=== PATIENT | male | born 1935 | race Caucasian/White ===

== ENCOUNTER → 2016-10-10 | Outpatient (REF) | payer MEDICARE, OTHER ==
[~2016-10-10] MED LIST: CARV25TA PO; PRAD150C PO; PRAV40TA2 PO; QUIN5TAB7 PO; SPIR25TA2 PO; TIMO5OPD OU; TORS20TA2 PO; TYLE325T5 PO; VITMTA PO; ZYLO300T4 PO
[2016-10-10 12:10] LABS: ALBUMIN 3.5 GM/DL (3.2-5.2); ALBUMIN/GLOBULIN RATIO 1.06 (1.00-1.93); BILIRUBIN,TOTAL 0.9 MG/DL (0.2-1.0); CALCIUM LEVEL 8.7 MG/DL (8.8-10.2); CREATININE FOR GFR 1.37 MG/DL (0.70-1.30); MAGNESIUM LEVEL 2.4 MG/DL (1.8-2.4); TOTAL PROTEIN 6.8 GM/DL (6.4-8.2)
[2016-10-10 12:17] LABS: MEAN CORPUSCULAR HEMOGLOBIN 35.3 pg (27.0-33.0); MEAN CORPUSCULAR HGB CONC 33.1 g/dl (32.0-36.5); MEAN CORPUSCULAR VOLUME 106.8 fl (80.0-96.0); WHITE BLOOD COUNT 8.6 K/mm3 (4.0-10.0)
== END ==
LOC: M LABDRAWC 11:08
PROVIDERS: ATTEND Physician Assistant
DX: I50.42 Chronic combined systolic (congestive) and diastolic (congestive) heart failure (principal); E78.00 Pure hypercholesterolemia, unspecified; I48.2 Chronic atrial fibrillation

== ENCOUNTER 2016-10-14 09:31 | Emergency (ER) | payer MEDICARE, OTHER ==
[~2016-10-14] VITALS: Ht 175.3 cm; Wt 103.9 kg
[2016-10-14 09:32] VITALS: BP 136/63
[2016-10-14] MEDS ORDERED: NS 1,000 ML IV SCH (09:43)
[2016-10-14 10:41] LABS: BASO % 0.5 % (0.0-1.0); EOS % 0.5 % (0.0-3.0); LARGE UNSTAINED CELL # 0.3 K/mm3 (0.0-0.4); LARGE UNSTAINED CELL % 3.5 % (0.0-4.0); LYMPH # 1.6 K/mm3 (1.5-4.5); LYMPH % 19.6 % (24.0-44.0); MEAN CORPUSCULAR HEMOGLOBIN 34.7 pg (27.0-33.0); MEAN CORPUSCULAR HGB CONC 32.7 g/dl (32.0-36.5); MEAN CORPUSCULAR VOLUME 106.1 fl (80.0-96.0); MONO # 0.5 K/mm3 (0.0-0.8); MONO % 6.6 % (0.0-5.0); NEUTROPHILS # 5.8 K/mm3 (1.8-7.7); NEUTROPHILS % 69.4 % (36.0-66.0); PLATELET COUNT, AUTOMATED 361 k/mm3 (150-450); RED CELL DISTRIBUTION WIDTH 17.8 % (11.5-14.5); WHITE BLOOD COUNT 8.3 K/mm3 (4.0-10.0)
--- NOTE | 2016-10-14 10:44 | REP ---
CHEST, TWO VIEWS: HISTORY: Shortness of breath. COMPARISON: 11/13/2015 A diffuse increase in interstitial markings is present in the lungs, consistent with chronic interstitial fibrosis. The cardiac silhouette is enlarged. The pulmonary vasculature is prominent. The bony structure is intact. A cardiac pacemaker is present. IMPRESSION: 1. Chronic interstitial fibrosis. 2. Cardiomegaly. Signed by Hamlet Farias MD 10/14/2016 10:45 A
[2016-10-14 11:16] LABS: ALBUMIN 3.4 GM/DL (3.2-5.2); ALBUMIN/GLOBULIN RATIO 1.06 (1.00-1.93); ALKALINE PHOSPHATASE 87 U/L (45-117); ALT/SGPT 33 U/L (12-78); ANION GAP 7 MEQ/L (8-16); AST/SGOT 17 U/L (15-37); BILIRUBIN,DIRECT 0.3 MG/DL (0.0-0.2); BLOOD UREA NITROGEN 25 MG/DL (7-18); CALCIUM LEVEL 8.9 MG/DL (8.8-10.2); CARBON DIOXIDE LEVEL 29 MEQ/L (21-32); CHLORIDE LEVEL 104 MEQ/L (98-107); CREATININE FOR GFR 1.17 MG/DL (0.70-1.30); GLOMERULAR FILTRATION RATE > 60.0 (>35); GLUCOSE, FASTING 114 MG/DL (83-110); POTASSIUM SERUM 3.8 MEQ/L (3.5-5.1); SODIUM LEVEL 140 MEQ/L (136-145); TOTAL PROTEIN 6.6 GM/DL (6.4-8.2)
[2016-10-14 11:55] LABS: ADD MORPHOLOGY? YES; POIKILOCYTOSIS 1+
[2016-10-14 12:09] VITALS: O2SAT 94
--- NOTE | 2016-10-14 14:32 | ECGEPIP ---
Stationary ECG Study [facility] - ED Test Date: 2016-10-14 Pat Name: RAULITO LA Department: Room: - Gender: M [employer]uity Specialist: [id number] : [id number] Requested By: Venice Vasquez Order Number: [id number] Reading MD: Venice Vasquez Measurements Intervals [place] Rate: 60 P: NV: 0 QRS: 93 QRSD: 169 T: 65 QT: 494 QTc: 494 Interpretive Statements ELECTRONIC VENTRICULAR PACEMAKER ABNORMAL RHYTHM ECG SIMILAR 11/13/15 Electronically Signed On 10-14-2016 14:31:50 EDT by Venice Vasquez
== END 2016-10-14 14:58 | disposition home or self-care (01) ==
LOC: M ED 10:15
DX: R53.83 Other fatigue (principal); D64.9 Anemia, unspecified; R06.09 Other forms of dyspnea; I11.0 Hypertensive heart disease with heart failure; I50.9 Heart failure, unspecified; I48.91 Unspecified atrial fibrillation; Z95.0 Presence of cardiac pacemaker; Z79.899 Other long term (current) drug therapy; Z79.01 Long term (current) use of anticoagulants; Z88.5 Allergy status to narcotic agent

== ENCOUNTER → 2016-10-19 | Outpatient (REF) | payer MEDICARE, OTHER ==
[2016-10-19 11:52] LABS: MEAN CORPUSCULAR HEMOGLOBIN 33.6 pg (27.0-33.0); MEAN CORPUSCULAR HGB CONC 31.6 g/dl (32.0-36.5); MEAN CORPUSCULAR VOLUME 106.5 fl (80.0-96.0); RED CELL DISTRIBUTION WIDTH 17.5 % (11.5-14.5); WHITE BLOOD COUNT 6.3 K/mm3 (4.0-10.0)
== END ==
LOC: M SFHCCLAY 08:14
PROVIDERS: ATTEND Family Medicine
DX: D64.9 Anemia, unspecified (principal)

== ENCOUNTER → 2017-09-30 | Outpatient (CLI) | payer MEDICARE, OTHER | LOC: M RAD 11:41 | DX: Z87.440 Personal history of urinary (tract) infections (principal) | CPT/HCPCS: 76857 ==

== ENCOUNTER → 2017-10-14 | Outpatient (REF) | payer MEDICARE, OTHER ==
[2017-10-14 12:34] LABS: ALBUMIN 3.9 GM/DL (3.2-5.2); ALBUMIN/GLOBULIN RATIO 1.26 (1.00-1.93); ALKALINE PHOSPHATASE 78 U/L (45-117); ALT/SGPT 19 U/L (12-78); ANION GAP 8 MEQ/L (8-16); AST/SGOT 13 U/L (7-37); BILIRUBIN,TOTAL 1.3 MG/DL (0.2-1.0); BLOOD UREA NITROGEN 20 MG/DL (7-18); CARBON DIOXIDE LEVEL 29 MEQ/L (21-32); CHLORIDE LEVEL 105 MEQ/L (98-107); GLOMERULAR FILTRATION RATE > 60.0 (>35); GLUCOSE, FASTING 113 MG/DL (70-100); MAGNESIUM LEVEL 2.5 MG/DL (1.8-2.4); NT-PRO BNP 2765 PG/ML (<450); POTASSIUM SERUM 3.7 MEQ/L (3.5-5.1); SODIUM LEVEL 142 MEQ/L (136-145)
== END ==
LOC: M SFHCCLAY 07:03
DX: I48.2 Chronic atrial fibrillation (principal); I11.0 Hypertensive heart disease with heart failure; D46.9 Myelodysplastic syndrome, unspecified

== ENCOUNTER → 2017-10-14 | Outpatient (REF) | payer MEDICARE, OTHER ==
[2017-10-14 13:53] LABS: APPEARANCE, URINE CLEAR (CLEAR); BACTERIA, URINE AUTO NEGATIVE (NEGATIVE); BILIRUBIN, URINE AUTO NEGATIVE (NEGATIVE); BLOOD, URINE BLOOD NEGATIVE (NEGATIVE); COLOR, URINE YELLOW (YELLOW); GLUCOSE, URINE (UA) AUTO NEGATIVE (NEGATIVE); KETONE, URINE AUTO NEGATIVE (NEGATIVE); LEUKOCYTE ESTERASE, URINE AUTO 1+ (NEGATIVE); NITRITE, URINE AUTO NEGATIVE (NEGATIVE); PROTEIN, URINE AUTO NEGATIVE (NEGATIVE); RBC, URINE AUTO 1 /HPF (0-3); SQUAMOUS EPITHELIAL CELL UR AU 0 /HPF (0-6); UROBILINOGEN, URINE AUTO 0.2 mg/dL (0.0-2.0); WBC, URINE AUTO 7 /HPF (0-3)
== END ==
LOC: M SMT 13:22
DX: N40.1 Benign prostatic hyperplasia with lower urinary tract symptoms (principal); N32.89 Other specified disorders of bladder; I50.42 Chronic combined systolic (congestive) and diastolic (congestive) heart failure; I48.2 Chronic atrial fibrillation; E78.00 Pure hypercholesterolemia, unspecified
CPT/HCPCS: 83735

== ENCOUNTER → 2017-10-14 | Outpatient (REF) | payer MEDICARE, OTHER ==
[2017-10-14 12:28] LABS: ALBUMIN 3.9 GM/DL (3.2-5.2); ALBUMIN/GLOBULIN RATIO 1.22 (1.00-1.93); ALKALINE PHOSPHATASE 81 U/L (45-117); ALT/SGPT 18 U/L (12-78); ANION GAP 7 MEQ/L (8-16); AST/SGOT 11 U/L (7-37); BILIRUBIN,TOTAL 1.3 MG/DL (0.2-1.0); BLOOD UREA NITROGEN 21 MG/DL (7-18); CALCIUM LEVEL 9.1 MG/DL (8.8-10.2); CARBON DIOXIDE LEVEL 28 MEQ/L (21-32); CHLORIDE LEVEL 107 MEQ/L (98-107); CHOLESTEROL LEVEL 87 MG/DL (<200); CHOLESTEROL RISK RATIO 1.851 (<5); CREATININE FOR GFR 1.19 MG/DL (0.70-1.30); GLOMERULAR FILTRATION RATE > 60.0 (>35); GLUCOSE, FASTING 113 MG/DL (70-100); HDL CHOLESTEROL 47 MG/DL (>40); LDL CHOLESTEROL 32.8 MG/DL (<100); MAGNESIUM LEVEL 2.4 MG/DL (1.8-2.4); NON-HDL-C 40 MG/DL; POTASSIUM SERUM 3.9 MEQ/L (3.5-5.1); SODIUM LEVEL 142 MEQ/L (136-145); TOTAL PROTEIN 7.1 GM/DL (6.4-8.2); TRIGLYCERIDES LEVEL 36 MG/DL (<150)
== END ==
LOC: M LABDRAWC 11:26
DX: I50.42 Chronic combined systolic (congestive) and diastolic (congestive) heart failure (principal); I48.2 Chronic atrial fibrillation; E78.00 Pure hypercholesterolemia, unspecified
CPT/HCPCS: 83735

== ENCOUNTER → 2018-04-15 | Outpatient (REF) | payer MEDICARE, OTHER ==
[2018-04-15 12:53] LABS: ANION GAP 7 MEQ/L (8-16); BLOOD UREA NITROGEN 26 MG/DL (7-18); CALCIUM LEVEL 9.1 MG/DL (8.8-10.2); CARBON DIOXIDE LEVEL 31 MEQ/L (21-32); CHLORIDE LEVEL 104 MEQ/L (98-107); CREATININE FOR GFR 1.31 MG/DL (0.70-1.30); GLOMERULAR FILTRATION RATE 55.5 (>35); GLUCOSE, FASTING 161 MG/DL (70-100); POTASSIUM SERUM 3.5 MEQ/L (3.5-5.1); SODIUM LEVEL 142 MEQ/L (136-145)
== END ==
LOC: M LABDRAWC 11:35
DX: I50.32 Chronic diastolic (congestive) heart failure (principal)
CPT/HCPCS: 80048

== ENCOUNTER → 2018-10-14 | Outpatient (REF) | payer MEDICARE, OTHER ==
[~2018-10-14] MED LIST changes: -PRAD150C PO; +PRAD150C6 PO; +QUIN1TAB PO; -QUIN5TAB7 PO; +SPIR-10 PO; -SPIR25TA2 PO; -ZYLO300T4 PO; +ZYLO300T6 PO
[2018-10-14 12:50] LABS: ALT/SGPT 21 U/L (12-78); BILIRUBIN,TOTAL 0.7 MG/DL (0.2-1.0); BLOOD UREA NITROGEN 24 MG/DL (7-18); CALCIUM LEVEL 9.2 MG/DL (8.8-10.2); CARBON DIOXIDE LEVEL 28 MEQ/L (21-32); CHLORIDE LEVEL 107 MEQ/L (98-107); CHOLESTEROL LEVEL 106 MG/DL (<200); CHOLESTEROL RISK RATIO 2.163 (<5); CREATININE FOR GFR 1.06 MG/DL (0.70-1.30); GLOMERULAR FILTRATION RATE > 60.0 (>35); GLUCOSE, FASTING 107 MG/DL (70-100); HDL CHOLESTEROL 49 MG/DL (>40); LDL CHOLESTEROL 48 MG/DL (<100); MAGNESIUM LEVEL 2.5 MG/DL (1.8-2.4); NON-HDL-C 57 MG/DL; POTASSIUM SERUM 4.1 MEQ/L (3.5-5.1); SODIUM LEVEL 143 MEQ/L (136-145); TOTAL PROTEIN 7.3 GM/DL (6.4-8.2); TRIGLYCERIDES LEVEL 47 MG/DL (<150)
== END ==
LOC: M LABDRAWC 11:10
PROVIDERS: ATTEND Physician Assistant
DX: I50.42 Chronic combined systolic (congestive) and diastolic (congestive) heart failure (principal); I48.2 Chronic atrial fibrillation; E78.00 Pure hypercholesterolemia, unspecified

== ENCOUNTER → 2019-04-01 | Outpatient (REF) | payer MEDICARE, OTHER ==
[2019-04-01 11:43] LABS: ALBUMIN 4.1 GM/DL (3.2-5.2); ALT/SGPT 24 U/L (12-78); BILIRUBIN,TOTAL 1.4 MG/DL (0.2-1.0); BLOOD UREA NITROGEN 26 MG/DL (7-18); CALCIUM LEVEL 9.9 MG/DL (8.8-10.2); CARBON DIOXIDE LEVEL 28 MEQ/L (21-32); CHLORIDE LEVEL 108 MEQ/L (98-107); CREATININE FOR GFR 1.15 MG/DL (0.70-1.30); FREE T4 0.85 NG/DL (0.76-1.46); GLOMERULAR FILTRATION RATE > 60.0 (>35); GLUCOSE, FASTING 106 MG/DL (70-100); IRON (FE) 138 UG/DL (65-175); PERCENT SATURATION 56.6 % (19.7-50.0); POTASSIUM SERUM 4.5 MEQ/L (3.5-5.1); SODIUM LEVEL 142 MEQ/L (136-145); TOTAL IRON BINDING CAPACITY 244 UG/DL (250-450); TOTAL PROTEIN 7.6 GM/DL (6.4-8.2)
[2019-04-01 11:46] LABS: FOLATE 17.1 NG/ML; VITAMIN B12 LEVEL 1231 PG/ML
== END ==
LOC: M SFHCCLAY 08:01
PROVIDERS: ATTEND Family Medicine
DX: I48.20 Chronic atrial fibrillation, unspecified (principal); D46.9 Myelodysplastic syndrome, unspecified; D64.9 Anemia, unspecified

== ENCOUNTER → 2019-10-21 | Outpatient (REF) | payer MEDICARE, OTHER ==
[2019-10-21 12:38] LABS: ALBUMIN 4.2 GM/DL (3.2-5.2); ALT/SGPT 20 U/L (12-78); BILIRUBIN,TOTAL 1.7 MG/DL (0.2-1.0); BLOOD UREA NITROGEN 19 MG/DL (7-18); CALCIUM LEVEL 10.2 MG/DL (8.8-10.2); CARBON DIOXIDE LEVEL 28 MEQ/L (21-32); CHLORIDE LEVEL 105 MEQ/L (98-107); CHOLESTEROL LEVEL 83 MG/DL (<200); CHOLESTEROL RISK RATIO 1.693 (<5); CREATININE FOR GFR 1.09 MG/DL (0.70-1.30); GLOMERULAR FILTRATION RATE > 60.0 (>35); GLUCOSE, FASTING 102 MG/DL (70-100); HDL CHOLESTEROL 49 MG/DL (>40); LDL CHOLESTEROL 27 MG/DL (<100); MAGNESIUM LEVEL 2.4 MG/DL (1.8-2.4); NON-HDL-C 34 MG/DL; POTASSIUM SERUM 4.4 MEQ/L (3.5-5.1); SODIUM LEVEL 137 MEQ/L (136-145); TOTAL PROTEIN 7.1 GM/DL (6.4-8.2); TRIGLYCERIDES LEVEL 33 MG/DL (<150)
== END ==
LOC: M SFHCCLAY 08:04
PROVIDERS: ATTEND Family Medicine
DX: I10 Essential (primary) hypertension (principal)

== ENCOUNTER → 2020-01-20 | Outpatient (CLI) | payer MEDICARE, OTHER ==
--- NOTE | 2020-02-04 10:42 | REP ---
CERVICAL SPINE SERIES: HISTORY: Left radicular symptoms. FINDINGS: 7-views of the cervical spine are performed. There is no compression fracture. There is mild anterior listhesis of C4 on C5 and C5 on C6 apparently due to posterior facet arthropathy. This does not change with flexion comparing to the neutral position. It does appear to essentially reduce with extension. The inferior aspect of C7 is not visualized. Its relation to the T1 vertebral body cannot be ascertained. There is mild spurring of C4 and C5 with a more moderate degree of spurring of C6 and C7. There is mild disc space narrowing at C5-6 and C6-7. There is diffuse narrowing, sclerosis and spurring at the posterior facet joints. There is no gross radiographic evidence of significant neuroforaminal narrowing bilaterally. IMPRESSION: Degenerative changes as above. Diffuse facet arthritic change. Mild degenerative disc disease at C5-6 and C6-7. Mild anterior listhesis of C4 on C5 and C5 on C6 noted in the neutral and flexed positions, essentially reduces in extension. MTDD
== END ==
LOC: M CLY 12:31
PROVIDERS: ATTEND Family Medicine
DX: M50.322 Other cervical disc degeneration at C5-C6 level (principal); M50.323 Other cervical disc degeneration at C6-C7 level; M25.78 Osteophyte, vertebrae; M54.12 Radiculopathy, cervical region
CPT/HCPCS: 72050; G0463

== ENCOUNTER 2020-07-22 13:44 | Emergency (ER) | payer MEDICARE, OTHER ==
[~2020-07-22] VITALS: Ht 172.7 cm; Wt 94.5 kg
[2020-07-22] MEDS ORDERED: ELIQ5TAB (14:02)
[2020-07-22] MEDS ORDERED: LIDOCAINE 1% MDV 20ML VIAL SC ONE (16:40)
[2020-07-22] MEDS ORDERED: LIDOCAINE 1% MDV 20ML VIAL As Ordered ONE (16:41)
[2020-07-22] MEDS ORDERED: NEOSPORIN OINT 0.9 GM PKT TOP ONE (17:25)
[2020-07-22] MEDS ORDERED: SILVER NITRATE APPLICATOR TOP ONE (17:40)
[2020-07-22] MEDS ORDERED: BACTRIM 160MG/800MG DS TAB PO ONE (17:45)
[2020-07-22] MEDS ORDERED: TAMSULOSIN 0.4 MG CAP PO ONE (17:45)
[2020-07-22] MEDS ORDERED: ACETAMINOPHEN 500 MG TAB PO ONE (18:00)
[2020-07-22 18:01] VITALS: BP 175/75
[2020-07-22] MEDS ORDERED: CEPH500C PO (18:01)
[2020-07-22] MEDS ORDERED: FLOM0.4C39 PO (18:01)
[2020-07-22] MEDS ORDERED: CEPHALEXIN 500 MG CAP PO ONE (18:05)
== END 2020-07-22 18:38 | disposition home or self-care (01) ==
LOC: M ED 13:44
DX: R33.9 Retention of urine, unspecified (principal); N39.0 Urinary tract infection, site not specified; N47.1 Phimosis; I50.9 Heart failure, unspecified; Z95.0 Presence of cardiac pacemaker; I10 Essential (primary) hypertension; D64.9 Anemia, unspecified; Z79.01 Long term (current) use of anticoagulants; Z79.899 Other long term (current) drug therapy; Z88.5 Allergy status to narcotic agent

== ENCOUNTER → 2021-06-13 | Outpatient (REF) | payer MEDICARE, OTHER ==
[~2021-06-13] MED LIST changes: +CEPH500C PO; +ELIQ5TAB; +FLOM0.4C39 PO
== END ==
LOC: M LAB REF 12:56
PROVIDERS: ATTEND Physician Assistant
DX: M25.462 Effusion, left knee (principal)

== ENCOUNTER → 2021-08-17 | Outpatient (REF) | payer MEDICARE, OTHER | LOC: M SFHCCLAY 07:05 | PROVIDERS: ATTEND Family Medicine | DX: M25.571 Pain in right ankle and joints of right foot (principal); M79.671 Pain in right foot ==

== ENCOUNTER → 2022-09-17 | Outpatient (REF) | payer MEDICARE, OTHER | LOC: M LABDRAWC 16:49 | PROVIDERS: ATTEND Family Medicine | DX: R35.0 Frequency of micturition (principal) ==

== ENCOUNTER → 2023-02-22 | Outpatient (REF) | payer MEDICARE, OTHER | LOC: M SFHCCLAY 13:40 | PROVIDERS: ATTEND Family Medicine | DX: M10.9 Gout, unspecified (principal) ==

== ENCOUNTER 2024-01-19 13:10 | Inpatient (IN) | payer MEDICARE, OTHER ==
[~2024-01-19] VITALS: Ht 175.3 cm; Wt 82.4 kg
[2024-01-19] MEDS ORDERED: ALLO300T2 PO (13:30)
[2024-01-19] MEDS ORDERED: LEVO1TAB39 PO (13:30)
[2024-01-19] MEDS ORDERED: ACET325C5 PO (13:30)
[2024-01-19] MEDS ORDERED: AMIL5TAB4 PO (13:30)
[2024-01-19] MEDS ORDERED: ELIQ2.5T PO (13:30)
[2024-01-19 14:17] LABS: HEMATOCRIT 27.9 % (42.0-52.0); HEMOGLOBIN 9.1 g/dl (13.5-17.5); MEAN CORPUSCULAR HEMOGLOBIN 31.8 pg (27.0-33.0); MEAN CORPUSCULAR HGB CONC 32.6 g/dl (32.0-36.5); MEAN CORPUSCULAR VOLUME 97.6 fl (80.0-96.0); PLATELET COUNT, AUTOMATED 185 10^3/uL (150-450); RED BLOOD COUNT 2.86 10^6/uL (4.30-6.10); WHITE BLOOD COUNT 14.8 10^3/uL (4.0-10.0)
[2024-01-19 14:30] LABS: INR 1.73; PARTIAL THROMBOPLASTIN TIME 39.6 SECONDS (24.8-34.2); PROTHROMBIN TIME 19.7 SECONDS (12.5-14.5)
[2024-01-19] MEDS: NS 500 ML IV ONE (14:30)
[2024-01-19 14:36] LABS: ATYPICAL LYMPH 1 % (0-5); LYMPHOCYTES 9 % (16-44); MONOCYTES 7 % (0-5); NEUTROPHILS 78 % (28-66); PLATELET ESTIMATE NORMAL (NORMAL)
[2024-01-19 14:38] LABS: ANISOCYTOSIS 2+; CK-MB VALUE MASS < 1.0 NG/ML (<3.6); HYPOCHROMASIA 2+
[2024-01-19 14:40] LABS: BLOOD UREA NITROGEN 36 MG/DL (9-23); CARBON DIOXIDE LEVEL 26 MMOL/L (20-31); CHLORIDE LEVEL 104 MMOL/L (98-107); CPK CREATINE PHOSPHOKINASE 28 U/L (46-171); GLOMERULAR FILTRATION RATE > 60.0 (>35); GLUCOSE, FASTING 104 MG/DL (74-106); MB/CK RELATIVE INDEX 3.57 (< OR =4); SODIUM LEVEL 135 MMOL/L (136-145); TARGET CELLS 1+; TEAR DROP CELLS 1+
[2024-01-19 14:41] LABS: ALBUMIN 3.7 G/DL (3.2-5.2); ALKALINE PHOSPHATASE 70 U/L (46-116); ALT/SGPT 10 U/L (7.0-40); AST/SGOT 10 U/L (<34); BILIRUBIN,DIRECT 1.3 MG/DL (<0.4); BILIRUBIN,TOTAL 2.7 MG/DL (0.3-1.2); TOTAL PROTEIN 6.8 G/DL (5.7-8.2)
[2024-01-19 14:43] LABS: FREE T4 1.03 NG/DL (0.89-1.76); THYROID STIMULATING HORMONE 2.506 uIU/ML (0.55-4.78)
[2024-01-19] MEDS: cefTRIAXone SOD 1 GM in D5W MINI-BAG PLUS 50 ML IV ONE ×2 (15:27→16:58)
[2024-01-19 15:42] LABS: CK-MB VALUE MASS < 1.0 NG/ML (<3.6)
[2024-01-19 15:43] LABS: CPK CREATINE PHOSPHOKINASE 22 U/L (46-171); MB/CK RELATIVE INDEX 4.54 (< OR =4)
[2024-01-19] MEDS ORDERED: traMADol 50 MG TAB PO PRN (16:25)
[2024-01-19] MEDS ORDERED: SENOKOT S TAB PO PRN (16:30)
[2024-01-19] MEDS ORDERED: MIRALAX *UNIT DOSE* 17GM PACKET PO PRN (16:30)
[2024-01-19] MEDS ORDERED: ONDANSETRON 4MG 2ML VIAL IV PRN (16:30)
[2024-01-19] MEDS: NS 1,000 ML IV ONE (16:57)
[2024-01-19] MEDS ORDERED: TIMO0.5S20 OU (17:34)
[2024-01-19] MEDS ORDERED: ACET-683 PO (17:34)
[2024-01-19] MEDS ORDERED: HOME MED LIST COMPLETE! XX SCH (17:40)
[2024-01-19] MEDS: allopurinoL 300 MG TAB PO SCH (18:32)
[2024-01-19] MEDS: ACETAMINOPHEN 500 MG TAB PO SCH (18:33)
[2024-01-19] MEDS: LACTOBACILLUS ACIDOPHILUS CAP (BACID) PO SCH (18:33)
[2024-01-19] MEDS: PRAVASTATIN 20 MG TAB PO SCH (18:34)
[2024-01-19] MEDS: TIMOLOL MALEATE 0.5% OPHTH SOLN 5 ML OU SCH (21:00)
[2024-01-19] MEDS: CARVedilol 12.5 MG TAB PO SCH (21:00)
[2024-01-19 21:34] VITALS: BP 118/56; TEMP 97.4; O2SAT 96
[2024-01-19] MEDS: APIXABAN 2.5 MG TAB (ELIQUIS) PO SCH (21:48)
[2024-01-19 23:39] VITALS: BP 116/56; TEMP 97.8; O2SAT 94
[2024-01-20] VITALS (7 sets, daily range): BP systolic 128–137; BP diastolic 56–68; TEMP 97.1–97.9; O2SAT 93–96
[2024-01-20 06:11] LABS: BASO % 0.1 % (0.0-1.0); EOS % 0.1 % (0.0-3.0); HEMOGLOBIN 8.2 g/dl (13.5-17.5); LYMPH # 1.4 10^3/uL (1.5-5.0); LYMPH % 10.3 % (24.0-44.0); MEAN CORPUSCULAR HEMOGLOBIN 31.2 pg (27.0-33.0); MEAN CORPUSCULAR HGB CONC 31.5 g/dl (32.0-36.5); MEAN CORPUSCULAR VOLUME 98.9 fl (80.0-96.0); MONO % 14.8 % (2.0-8.0); NEUTROPHILS # 10.2 10^3/uL (1.5-8.5); NEUTROPHILS % 73.7 % (36.0-66.0); PLATELET COUNT, AUTOMATED 184 10^3/uL (150-450); RED BLOOD COUNT 2.63 10^6/uL (4.30-6.10); WHITE BLOOD COUNT 13.8 10^3/uL (4.0-10.0)
[2024-01-20 06:34] LABS: BLOOD UREA NITROGEN 33 MG/DL (9-23); CALCIUM LEVEL 8.9 MG/DL (8.3-10.6); CARBON DIOXIDE LEVEL 24 MMOL/L (20-31); CHLORIDE LEVEL 107 MMOL/L (98-107); CREATININE FOR GFR 0.97 MG/DL (0.70-1.30); GLOMERULAR FILTRATION RATE > 60.0 (>35); GLUCOSE, FASTING 95 MG/DL (74-106); POTASSIUM SERUM 3.9 MMOL/L (3.5-5.1); SODIUM LEVEL 138 MMOL/L (136-145)
[2024-01-20] MEDS: TORSEMIDE 20 MG TAB PO SCH (09:00)
[2024-01-20] MEDS: SPIRONOLACTONE 12.5MG PER 1/2 TABLET PO SCH (09:26)
[2024-01-20] MEDS: CETIRIZINE (ZyrTEC) 10 MG TAB PO ONE (09:27)
[2024-01-20] MEDS: BISACODYL 5MG TAB PO PRN (10:15)
[2024-01-20] MEDS ORDERED: ACETAMINOPHEN 500 MG TAB PO ONE (10:15)
[2024-01-20] MEDS: aMILoride 5 MG TAB PO SCH (11:21)
[2024-01-20] MEDS: FLUTICASONE PROP 0.05% NASAL SPRAY 16 GM (FLONASE) NARES ONE (11:23)
[2024-01-20] MEDS: OXYMETAZOLINE 0.05% NASAL SPRAY (AFRIN) ONE (11:24)
[2024-01-20] MEDS: cefTRIAXone SOD 1 GM in D5W MINI-BAG PLUS 50 ML IV SCH (11:31)
[2024-01-20] MEDS ORDERED: ACET-683 PO (14:37)
[2024-01-20] MEDS ORDERED: CEFTINJ IV (14:37)
[2024-01-20] MEDS ORDERED: OXYMETAZOLINE 0.05% NASAL SPRAY (AFRIN) SCH (21:00)
[2024-01-21] MEDS ORDERED: FLUTICASONE PROP 0.05% NASAL SPRAY 16 GM (FLONASE) NARES SCH (09:00)
== END 2024-01-20 15:53 | DRG 698 ==
LOC: M ED 13:10 → EDBD 13:10 → M ED INP 16:13 → M PCU 21:34
PROVIDERS: ADMIT General Practice; ATTEND General Practice
DX: T83.511A Infection and inflammatory reaction due to indwelling urethral catheter, initial encounter (principal); A41.9 Sepsis, unspecified organism; Y84.6 Urinary catheterization as the cause of abnormal reaction of the patient, or of later complication, without mention of misadventure at the time of the procedure; I48.91 Unspecified atrial fibrillation; D46.9 Myelodysplastic syndrome, unspecified; I10 Essential (primary) hypertension; N40.1 Benign prostatic hyperplasia with lower urinary tract symptoms; N39.0 Urinary tract infection, site not specified; R33.9 Retention of urine, unspecified; M81.0 Age-related osteoporosis without current pathological fracture; Z66 Do not resuscitate; S92.532A Displaced fracture of distal phalanx of left lesser toe(s), initial encounter for closed fracture; W18.30XA Fall on same level, unspecified, initial encounter; Y92.481 Parking lot as the place of occurrence of the external cause; Y93.89 Activity, other specified; Y99.8 Other external cause status; Z79.01 Long term (current) use of anticoagulants; Z79.899 Other long term (current) drug therapy; Z88.5 Allergy status to narcotic agent; Z87.891 Personal history of nicotine dependence

== ENCOUNTER 2024-01-20 14:08 | Inpatient (IN) | payer MEDICARE, OTHER ==
[~2024-01-20] VITALS: Ht 175.3 cm; Wt 83.1 kg
[~2024-01-20 14:08] MED LIST changes: +ACET-683 PO; +ACET325C5 PO; +ALLO300T2 PO; +AMIL5TAB4 PO; +ELIQ2.5T PO; +LEVO1TAB39 PO; +TIMO0.5S20 OU
[2024-01-20] MEDS ORDERED: CEFTINJ IV (14:37)
[2024-01-20] MEDS ORDERED: ACET-683 PO (14:37)
[2024-01-20 15:56] VITALS: BP 145/61; TEMP 97.4; O2SAT 96
[2024-01-20] MEDS ORDERED: BISACODYL 10MG SUPP PR PRN (16:25)
[2024-01-20] MEDS ORDERED: MIRALAX *UNIT DOSE* 17GM PACKET PO PRN (16:25)
[2024-01-20] MEDS ORDERED: ONDANSETRON 4MG TAB PO PRN (16:25)
[2024-01-20] MEDS ORDERED: MOM 30ML SUSPENSION UDC PO PRN (16:25)
[2024-01-20] MEDS ORDERED: FLEET ENEMA PR PRN (16:25)
[2024-01-20] MEDS ORDERED: OXYMETAZOLINE 0.05% NASAL SPRAY (AFRIN) PRN (16:35)
[2024-01-20] MEDS ORDERED: traMADol 50 MG TAB PO PRN (16:35)
[2024-01-20] MEDS: LACTOBACILLUS ACIDOPHILUS CAP (BACID) PO SCH (17:56)
[2024-01-20] MEDS: ACETAMINOPHEN 500 MG TAB PO SCH (17:57)
[2024-01-20 20:00] VITALS: BP 128/61; TEMP 97.7; O2SAT 93
[2024-01-20] MEDS: CARVedilol 12.5 MG TAB PO SCH (20:20)
[2024-01-20] MEDS: SENNA 8.6 MG TAB (SENOKOT) PO SCH (20:21)
[2024-01-20] MEDS: APIXABAN 2.5 MG TAB (ELIQUIS) PO SCH (20:21)
[2024-01-20] MEDS: TIMOLOL MALEATE 0.5% OPHTH SOLN 5 ML OU SCH (20:23)
[2024-01-20 23:29] VITALS: BP 138/65; TEMP 97.7; O2SAT 93
[2024-01-21 00:21] VITALS: BP 138/65; TEMP 97.7; O2SAT 93
[2024-01-21 04:00] VITALS: BP 140/65; TEMP 97.7; O2SAT 95
[2024-01-21 06:23] LABS: BASO % 0.1 % (0.0-1.0); EOS % 0.3 % (0.0-3.0); HEMATOCRIT 25.6 % (42.0-52.0); HEMOGLOBIN 8.3 g/dl (13.5-17.5); LYMPH % 20.4 % (24.0-44.0); MEAN CORPUSCULAR HEMOGLOBIN 31.7 pg (27.0-33.0); MEAN CORPUSCULAR HGB CONC 32.4 g/dl (32.0-36.5); MEAN CORPUSCULAR VOLUME 97.7 fl (80.0-96.0); MONO # 1.5 10^3/uL (0.0-0.8); NEUTROPHILS # 6.1 10^3/uL (1.5-8.5); NEUTROPHILS % 63.1 % (36.0-66.0); PLATELET COUNT, AUTOMATED 190 10^3/uL (150-450); RED BLOOD COUNT 2.62 10^6/uL (4.30-6.10); WHITE BLOOD COUNT 9.7 10^3/uL (4.0-10.0)
[2024-01-21 06:47] LABS: BLOOD UREA NITROGEN 33 MG/DL (9-23); CALCIUM LEVEL 8.9 MG/DL (8.3-10.6); CARBON DIOXIDE LEVEL 25 MMOL/L (20-31); CHLORIDE LEVEL 108 MMOL/L (98-107); CREATININE FOR GFR 0.92 MG/DL (0.70-1.30); GLOMERULAR FILTRATION RATE > 60.0 (>35); GLUCOSE, FASTING 97 MG/DL (74-106); POTASSIUM SERUM 3.8 MMOL/L (3.5-5.1); SODIUM LEVEL 138 MMOL/L (136-145)
[2024-01-21 06:53] VITALS: BP 140/65; TEMP 97.7; O2SAT 95
[2024-01-21] MEDS: allopurinoL 300 MG TAB PO SCH (08:19)
[2024-01-21] MEDS: TORSEMIDE 20 MG TAB PO SCH (08:20)
[2024-01-21] MEDS: PRAVASTATIN 20 MG TAB PO SCH (08:20)
[2024-01-21] MEDS: CETIRIZINE (ZyrTEC) 10 MG TAB PO SCH (08:22)
[2024-01-21] MEDS: SPIRONOLACTONE 12.5MG PER 1/2 TABLET PO SCH (08:22)
[2024-01-21] MEDS: aMILoride 5 MG TAB PO SCH (10:22)
[2024-01-21] MEDS: FLUTICASONE PROP 0.05% NASAL SPRAY 16 GM (FLONASE) NARES SCH (10:22)
[2024-01-21 12:00] VITALS: BP 142/65; TEMP 97.4; O2SAT 94
[2024-01-21] MEDS: cefTRIAXone SOD 1 GM in D5W MINI-BAG PLUS 50 ML IV SCH (12:14)
[2024-01-21] MEDS: traMADol 50 MG TAB PO PRN (12:25)
[2024-01-21 18:56] LABS: PERCENT SATURATION 6.2 % (19.7-50.0)
[2024-01-21 18:58] LABS: FERRITIN 1154.2 NG/ML (10.5-307.3)
[2024-01-21 19:01] LABS: FOLATE 17.16 NG/ML (>5.4)
[2024-01-21 20:00] VITALS: BP 142/69; TEMP 97.8; O2SAT 98
[2024-01-21 22:00] VITALS: BP 142/69; TEMP 97.8
[2024-01-22 04:00] VITALS: BP 143/65; TEMP 97.8; O2SAT 97
[2024-01-22] MEDS: LACTOBACILLUS ACIDOPHILUS CAP (BACID) PO SCH (08:22)
[2024-01-22 10:35] LABS: BASO % 0.2 % (0.0-1.0); EOS % 0.3 % (0.0-3.0); HEMATOCRIT 26.3 % (42.0-52.0); HEMOGLOBIN 8.5 g/dl (13.5-17.5); LYMPH % 30.4 % (24.0-44.0); MEAN CORPUSCULAR HEMOGLOBIN 31.4 pg (27.0-33.0); MEAN CORPUSCULAR HGB CONC 32.3 g/dl (32.0-36.5); MONO # 0.7 10^3/uL (0.0-0.8); NEUTROPHILS # 3.8 10^3/uL (1.5-8.5); NEUTROPHILS % 57.7 % (36.0-66.0); PLATELET COUNT, AUTOMATED 244 10^3/uL (150-450); RED BLOOD COUNT 2.71 10^6/uL (4.30-6.10); WHITE BLOOD COUNT 6.6 10^3/uL (4.0-10.0)
[2024-01-22 11:10] LABS: BLOOD UREA NITROGEN 36 MG/DL (9-23); CALCIUM LEVEL 8.7 MG/DL (8.3-10.6); CARBON DIOXIDE LEVEL 23 MMOL/L (20-31); CHLORIDE LEVEL 105 MMOL/L (98-107); GLOMERULAR FILTRATION RATE > 60.0 (>35); GLUCOSE, FASTING 146 MG/DL (74-106); POTASSIUM SERUM 4.1 MMOL/L (3.5-5.1); SODIUM LEVEL 134 MMOL/L (136-145)
[2024-01-22 12:00] VITALS: BP 160/69; TEMP 97; O2SAT 98
[2024-01-22] MEDS: [UNRECOGNIZED DRUG - REMARK] SC ONE (13:35)
[2024-01-22] MEDS ORDERED: **hydrALAZINE HCL** 25 MG TAB PO PRN (14:20)
[2024-01-22 14:42] VITALS: BP 142/64
[2024-01-22] MEDS: cefTRIAXone SOD 1 GM in D5W MINI-BAG PLUS 50 ML IV SCH (16:43)
[2024-01-22 20:00] VITALS: BP 130/66; TEMP 97.4; O2SAT 98
[2024-01-22 20:05] VITALS: BP 130/66; TEMP 97.4; O2SAT 97
[2024-01-23 04:17] VITALS: BP 121/58; TEMP 98.5; O2SAT 98
[2024-01-23] MEDS ORDERED: ACETAMINOPHEN TAB 650MG DOSE (2X325MG) PO PRN (08:45)
[2024-01-23 12:00] VITALS: BP 129/63; TEMP 97.3; O2SAT 96
[2024-01-23] MEDS ORDERED: MICONAZOLE TOPICAL 2% CREAM 15GM TOP ONE (13:50)
[2024-01-23] MEDS: MICONAZOLE TOPICAL 2% CREAM 15GM TOP SCH (16:26)
[2024-01-23 20:00] VITALS: BP 150/68; TEMP 97.9; O2SAT 100
[2024-01-23] MEDS: AMOXICILLIN 500 MG CAP PO SCH (20:04)
[2024-01-24 03:06] VITALS: BP 127/59; TEMP 97.8; O2SAT 100
[2024-01-24 06:52] LABS: BASO % 0.1 % (0.0-1.0); EOS % 0.3 % (0.0-3.0); HEMATOCRIT 25.2 % (42.0-52.0); HEMOGLOBIN 8.2 g/dl (13.5-17.5); LYMPH # 2.7 10^3/uL (1.5-5.0); LYMPH % 38.8 % (24.0-44.0); MEAN CORPUSCULAR HEMOGLOBIN 31.8 pg (27.0-33.0); MEAN CORPUSCULAR HGB CONC 32.5 g/dl (32.0-36.5); MEAN CORPUSCULAR VOLUME 97.7 fl (80.0-96.0); MONO # 0.7 10^3/uL (0.0-0.8); MONO % 10.5 % (2.0-8.0); NEUTROPHILS # 3.2 10^3/uL (1.5-8.5); NEUTROPHILS % 46.5 % (36.0-66.0); PLATELET COUNT, AUTOMATED 249 10^3/uL (150-450); RED BLOOD COUNT 2.58 10^6/uL (4.30-6.10); WHITE BLOOD COUNT 6.9 10^3/uL (4.0-10.0)
[2024-01-24 12:05] VITALS: BP 129/59; TEMP 97; O2SAT 100
[2024-01-24] MEDS ORDERED: LOPERAMIDE 2 MG CAPLET PO PRN (14:50)
[2024-01-24] MEDS: LOPERAMIDE 2 MG CAPLET PO ONE (15:58)
[2024-01-24 20:00] VITALS: BP 142/75; TEMP 97.3; O2SAT 96
[2024-01-24] MEDS: METHENAMINE HIPPURATE 1GM TABLET PO SCH (20:44)
[2024-01-25 04:00] VITALS: BP 144/67; TEMP 97.2; O2SAT 93
[2024-01-25 12:00] VITALS: BP 130/68; TEMP 97.6; O2SAT 98
[2024-01-25 20:00] VITALS: BP 156/66; TEMP 98; O2SAT 97
[2024-01-26 04:00] VITALS: BP 141/65; TEMP 97.9; O2SAT 93
[2024-01-26 12:00] VITALS: BP 128/70; TEMP 98; O2SAT 92
[2024-01-26 19:40] VITALS: BP 130/72; TEMP 97.2; O2SAT 98
[2024-01-27] MEDS ORDERED: PERMETHRIN 5% CREAM 60 GM TOP SCH
[2024-01-27 04:09] VITALS: BP 118/57; TEMP 97.4; O2SAT 95
[2024-01-27] MEDS: BISACODYL 5MG TAB PO PRN (08:45)
[2024-01-27] MEDS: TUBERCULIN PPD 5 UNITS/0.1 ML ID ONE ×2 (10:02→21:12)
[2024-01-27 12:00] VITALS: BP 120/58; TEMP 97.7; O2SAT 98
[2024-01-27 20:03] VITALS: BP 143/67; TEMP 97.9; O2SAT 95
[2024-01-27] MEDS: PERMETHRIN 5% CREAM 60 GM TOP ONE (21:12)
[2024-01-28 04:00] VITALS: BP 130/59; TEMP 97.9; O2SAT 95
[2024-01-28 12:00] VITALS: BP 146/66; TEMP 97.1; O2SAT 97
[2024-01-28] MEDS ORDERED: ACET1TAB55 PO (14:46)
[2024-01-28] MEDS ORDERED: TRAM50TA2 PO (14:46)
[2024-01-28] MEDS ORDERED: MICO2CRE22 TOP (14:46)
[2024-01-28] MEDS ORDERED: BISAC5TA PO (14:46)
[2024-01-28] MEDS ORDERED: METH-855 PO (14:46)
[2024-01-28] MEDS ORDERED: ELIQ2.5T PO (14:46)
[2024-01-28] MEDS: PPD DOCUMENTATION ENTRY MISC XX ONE (18:30)
[2024-01-28 20:00] VITALS: BP 142/63; TEMP 97.8; O2SAT 96
[2024-01-29 04:00] VITALS: BP 128/60; TEMP 98.2; O2SAT 96
[2024-01-29] MEDS ORDERED: AMIL5TAB4 PO (09:03)
[2024-01-29] MEDS ORDERED: SPIR-10 PO (09:03)
[2024-01-29] MEDS ORDERED: PRAV40TA2 PO (09:03)
[2024-01-29] MEDS ORDERED: TIMO0.5S20 OU (09:03)
[2024-01-29] MEDS ORDERED: CARV25TA PO (09:03)
[2024-01-29] MEDS ORDERED: ALLO300T2 PO (09:03)
[2024-01-29] MEDS ORDERED: TORS20TA2 PO (09:03)
[2024-01-29] MEDS ORDERED: PPD DOCUMENTATION ENTRY MISC XX SCH (10:00)
[2024-01-29 12:00] VITALS: BP 118/62; TEMP 98; O2SAT 94
[2024-01-29 20:00] VITALS: BP 143/61; TEMP 97.4; O2SAT 96
[2024-01-30 04:00] VITALS: BP 110/55; TEMP 97.2; O2SAT 95
[2024-01-30 08:16] VITALS: BP 136/81
== END 2024-01-30 12:15 | disposition home or self-care (01) | DRG 560 ==
LOC: M PM&R 15:55
PROVIDERS: ADMIT Physical Medicine & Rehabilitation; ATTEND Physical Medicine & Rehabilitation
DX: S92.532D Displaced fracture of distal phalanx of left lesser toe(s), subsequent encounter for fracture with routine healing (principal); N39.0 Urinary tract infection, site not specified; Z66 Do not resuscitate; I10 Essential (primary) hypertension; I48.91 Unspecified atrial fibrillation; R06.02 Shortness of breath; D46.9 Myelodysplastic syndrome, unspecified; N40.1 Benign prostatic hyperplasia with lower urinary tract symptoms; Z74.1 Need for assistance with personal care; Z74.09 Other reduced mobility; R26.89 Other abnormalities of gait and mobility; M10.9 Gout, unspecified; Z95.0 Presence of cardiac pacemaker; Z96.0 Presence of urogenital implants; Z79.01 Long term (current) use of anticoagulants; Z79.899 Other long term (current) drug therapy; Z88.5 Allergy status to narcotic agent; Z11.52 Encounter for screening for COVID-19; R33.9 Retention of urine, unspecified; B37.9 Candidiasis, unspecified